=== PATIENT | female | born 1950 | race Asian ===

== ENCOUNTER 2016-09-13 18:14 | Outpatient (CLI) | payer OTHER ==
[~2016-09-13 18:14] MED LIST: ASPIR-8181 MG OR; B-12500 MC1 SL; CADUET10 MG/20 M OR; CARV12.5 PO; FURO40TA93 PO; ISOS30TA17 PO; LIPITOR40 MG PO; PROZAC10 MG PO; ZESTRIL40 MG OR
== END 2016-09-13 18:18 | disposition short-term general hospital (02) ==
LOC: AMB 18:14
DX: R10.84 Generalized abdominal pain (principal); R53.1 Weakness
CPT/HCPCS: A0425; A0427

== ENCOUNTER 2017-07-04 14:52 | Outpatient (CLI) | payer OTHER | END 2017-07-04 14:57 | disposition short-term general hospital (02) | LOC: AMB 14:52 | DX: R55 Syncope and collapse (principal); Z86.73 Personal history of transient ischemic attack (TIA), and cerebral infarction without residual deficits | CPT/HCPCS: A0425; A0427 ==

== ENCOUNTER → 2017-10-13 | Outpatient (CLI) | payer OTHER | END | disposition short-term general hospital (02) | LOC: AMB 19:27 ==